=== PATIENT | male | born 1940 | race Caucasian/White ===

== ENCOUNTER → 2017-12-16 | Outpatient (CLI) | payer OTHER | LOC: FIMAGING 14:05 | PROVIDERS: ATTEND Orthopaedic Surgery | DX: M19.012 Primary osteoarthritis, left shoulder (principal); M25.812 Other specified joint disorders, left shoulder ==

== ENCOUNTER 2018-03-06 08:07 | Inpatient (IN) | payer OTHER ==
--- NOTE | 2018-03-03 15:35 | GHP ---
[f rep st] PREOP HISTORY AND PHYSICAL DATE OF ADMISSION: 03/06/2018 ADMISSION DIAGNOSIS: Osteoarthritis, left shoulder. PLANNED PROCEDURE: Left total shoulder arthroplasty. HISTORY: Wiliam is a 77-year-old male with slowly worsening osteoarthritis of the left shoulder. Mehran liu tried to manage this conservatively including physical therapy, activity modification, and cortis one injections. However, it has become functionally impaired on the left side and decision was made to proceed with a left total shoulder arthroplasty. PRIOR MEDICAL HISTORY: 1. Hypertension. 2. Coronary artery disease, status post stent placement. PRIOR SURGICAL HISTORY: He has had bilateral knee surgeries, right shoulder surgery in 2016 with a b iceps tenodesis and decompression. MEDICATIONS: Amlodipine, atorvastatin, baby aspirin, benazepril, Plavix, finasteride, metoprolol. ALLERGIES: No known drug allergies. SOCIAL HISTORY: He is . Lives here in town with his . He does not smoke. Reports occas ional alcohol use. REVIEW OF SYSTEMS: No shortness of breath or chest pain. Otherwise, review of systems is unremarkab le. PHYSICAL EXAMINATION: GENERAL: Healthy-appearing 77-year-old male. VITAL SIGNS: He is 5 feet 7 inche s tall, weighs 175 pounds. Blood pressure is 157/85, heart rate 74, respiratory rate is 14 on room a ir. GENERAL: Alert and oriented x3. HEENT: Normocephalic, atraumatic. Extraocular muscles intact . NECK: Supple. There is no lymphadenopathy. No JVD. CHEST: Clear to auscultation. CARDIOVASCU LAR: Regular rate and rhythm. ABDOMEN: Soft, nontender, nondistended. EXTREMITIES: Left shoulder shows some atrophy in the supraspinatus fossa, prominence over the AC joint, tenderness over the long head of the biceps. Active range of motion. He only has 60 degrees of forward flexion. Passively, I can get him to 130 degrees. He has 20 degrees of active external rotation. Passively, I can get h im to 60 degrees. Internal rotation, he has 60 degrees. Rotator cuff strength, supraspinatus is 4/5, infraspinatus 4/5 and subscapularis 4+ out of 5. IMAGING: MRI is reviewed from [facility], dated December 16, 2017. He has a partial tea r in the supraspinatus and a partial tear of the subscapularis, otherwise, rotator cuff is intact. T orn long head of the biceps and severe osteoarthritis of the glenohumeral joint. ASSESSMENT: Severe glenohumeral arthritis with partially torn rotator cuff. PLAN: Long discussion with Wiliam. He has failed conservative management. The shoulder is really concepcion te limiting for him. I recommend proceeding with a total shoulder arthroplasty. I think his cuff in tegrity is in good enough shape to proceed with a total shoulder although we did talk about the possi bility of needing to do a reverse if, in fact, the cuff is not in good shape. Risks and benefits inc luding postoperative stiffness, need for additional surgery, were all discussed. He understands thes e and wished to proceed. We will plan on surgery Tuesday at the hospital. /[id number]/MODL
[2018-03-06] MEDS ORDERED: ceFAZolin 2 GM/SWFI 2 GM/20 ML SYR IVP ONE (08:37)
[2018-03-06] MEDS ORDERED: LR 1,000 ML IV ONE (08:38)
[2018-03-06] MEDS ORDERED: ceFAZolin 2 GM/SWFI 20 ML SYR IVP ONE (08:42)
--- NOTE | 2018-03-06 09:03 | PDHPUP ---
History & Physical Update H&P update statement: This history and physical update is based on an assessment of the patient which was completed after admission or registration (within 24 hours), but prior to the surgery/procedure. H&P update: H&P reviewed & patient examined, no change in patient's condition since H&P completed
[2018-03-06] MEDS ORDERED: BACITRACIN 50,000 UNITS/10 ML SYR IRR ONE (09:20)
[2018-03-06] MEDS ORDERED: POLYMYXIN B SULFATE 500,000 UNIT/10 ML SYR IRR ONE (09:20)
[2018-03-06] MEDS ORDERED: BUPIVACAINE/EPI 0.5% 30 ML SDV ONE (09:20)
--- NOTE | 2018-03-06 09:20 | PDANEPAE ---
ANE History of Present Illness L total shoulder arthroplasty ANE Past Medical History - Cardiovascular History Hx Hypertension: Yes Hx Arrhythmias: No Hx Chest Pain: No Hx Coronary Artery / Peripheral Vascular Disease: Yes Hx CHF / Valvular Disease: No Hx Palpitations: No Cardiovascular History Comment: CAD. STENTS . [place]. MILD HEART MURMUR. CARDIOMYOPATHY. HYPERLIPIDEMIA - Pulmonary History Hx COPD: No Hx Asthma/Reactive Airway Disease: No Hx Recent Upper Respiratory Infection: No Hx Oxygen in Use at Home: No Hx Sleep Apnea: No Sleep Apnea Screening Result - Last Documented: Positive Pulmonary History Comment: SOPHIE TRIGGERS NO DX - Neurologic History Hx Cerebrovascular Accident: No Hx Seizures: No Hx Dementia: No - Endocrine History Hx Diabetes: No - Renal History Hx Renal Disorders: No - Liver History Hx Hepatic Disorders: No - Neurological & Psychiatric Hx Hx Neurological and Psychiatric Disorders: No - Cancer History Hx Cancer: No - Congenital Disorder History Hx Congenital Disorders: No - GI History Hx Gastrointestinal Disorders: No - Other Health History Other Health History: none - Chronic Pain History Chronic Pain: No - Surgical History Prior Surgeries: CARDIAC STENTS. LEFT KNEE SURGERY- SCOPE ACL AND MENISCUS REPAIR. RIGHT KNEE SCOPE. EYELID SURGERY ANE Review of Systems Review of systems is: negative Review of Systems: - Exercise capacity METS (RN): 4 METS ANE Patient History - Allergies Allergies/Adverse Reactions: No Known Allergies Allergy (Verified 02/10/18 14:35) - Home Medications Home medications: home medication list seen and reviewed Home Medications: Aspirin [Aspirin 81mg (*)] 81 mg PO DAILY 04/08/16 [Last Taken 1 Week Ago ~02/27] Atorvastatin Calcium [Lipitor 20 mg (*)] 20 mg PO DAILY 04/08/16 [Last Taken ] Benazepril HCl 40 mg PO DAILY 04/08/16 [Last Taken 03/05/18] Clopidogrel Bisulfate [Plavix (*)] 37.5 mg PO DAILY 04/08/16 [Last Taken 1 Week Ago ~02/27/18] Finasteride [Proscar 5 MG (*)] 5 mg PO DAILY 04/08/16 [Last Taken 03/06/18] Metoprolol Succinate Xr [Toprol Xl 100 mg (*)] 100 mg PO Q2D 04/08/16 [Last Taken 03/06/18] amLODIPine BESYLATE [Norvasc 10 mg (*)] 10 mg PO DAILY 04/08/16 [Last Taken ] Carboxymethylcellulose 1% [Refresh Celluvisc (*)] 1 drop EACHEYE DAILY PRN 02/10 [Last Taken 03/06/18] Multivitamins [Multivitamin (*)] 1 each PO DAILY 02/10/18 [Last Taken 1 Week Ago ~02/27/18] [place]-3 Fatty Acids [Fish Oil 1000 mg (*)] 1,000 mg PO DAILY 02/10/18 [Last Taken 1 Week Ago ~02/27/18] - NPO status NPO Status: no food or drink >8 hours NPO Since - Liquids (Date): 03/06/18 NPO Since - Liquids (Time): 04:30 NPO Since - Solids (Date): 03/05/18 NPO Since - Solids (Time): 20:00 - Anes Hx Anes Hx: no prior problems - Smoking Hx Smoking Status: Former smoker - Family Anes Hx Family Anes Hx: none Family Hx Anesthesia Complications: NONE ANE Labs/Vital Signs - Vital Signs Blood Pressure: 167/82 Heart Rate: 50 Respiratory Rate: 18 O2 Sat (%): 92 Height: 172.72 cm Weight: 81.647 kg ANE Physical Exam - Airway Neck exam: FROM Mallampati Score: Class 2 Mouth exam: normal dental/mouth exam - Pulmonary Pulmonary: no respiratory distress - Cardiovascular Cardiovascular: regular rate and rhythym - ASA Status ASA Status: III ANE Anesthesia Plan Anesthesia Plan: GA w LMA Regional Anesthesia: single shot NB, interscalene BP NB
[2018-03-06] MEDS ORDERED: ROPIVACAINE HCL 150 MG/30 ML INJ ONE (09:33)
[2018-03-06] MEDS ORDERED: DEXAMETHASONE 4 MG/ML VIAL ONE (09:34)
[2018-03-06] MEDS ORDERED: LIDOCAINE 2% 100 MG/5 ML SYR ONE (09:34)
[2018-03-06] MEDS ORDERED: ONDANSETRON 4 MG/2 ML VIAL ONE (09:34)
[2018-03-06] MEDS ORDERED: fentaNYL 100 MCG/2 ML INJ ONE ×2 (09:34→11:28)
[2018-03-06] MEDS ORDERED: PROPOFOL 200 MG/20 ML VIAL ONE (09:34)
[2018-03-06] MEDS ORDERED: epHEDrine SULFATE 10 MG/ML SYR ONE (10:11)
[2018-03-06] MEDS ORDERED: CALCIUM CHLORIDE 1 GM/10 ML INJ ONE (10:15)
[2018-03-06] MEDS ORDERED: THROMBIN (BOVINE) 5,000 UNIT VIAL TP ONE (10:15)
[2018-03-06] MEDS ORDERED: HYDROmorphONE/DILAUDID 2 MG/ML INJ IVP PRN (10:39)
[2018-03-06] MEDS ORDERED: HYDROCODONE/APAP 5/325 TAB PO PRN (10:39)
[2018-03-06] MEDS ORDERED: ACETAMINOPHEN 500 MG TAB PO PRN (10:39)
[2018-03-06] MEDS ORDERED: DEXAMETHASONE 4 MG/ML VIAL IVP PRN (10:39)
[2018-03-06] MEDS ORDERED: NALOXONE HCL 0.4 MG/ML INJ IVP PRN (10:39)
[2018-03-06] MEDS ORDERED: PROMETHAZINE HCL 25 MG/ML INJ IVP PRN (10:39)
[2018-03-06] MEDS ORDERED: ONDANSETRON 4 MG/2 ML VIAL IVP PRN ×2 (10:39→12:36)
[2018-03-06] MEDS ORDERED: MEPERIDINE 25 MG/ML SYR IVP PRN (10:39)
[2018-03-06] MEDS ORDERED: oxyCODONE IR 5 MG TAB PO PRN (10:39)
[2018-03-06] MEDS ORDERED: fentaNYL 100 MCG/2 ML INJ IVP PRN (10:39)
--- NOTE | 2018-03-06 10:39 | POSTANESTH ---
Post Anesthetic Evaluation Cardiovascular Status: Similar to Pre-Op Cond Respiratory Status: Normal, Stable, Similar to Pre-op Cond. Level of Consciousness/Mental Status: Can Participate in Eval, Mildly Sleepy, Arousable Pain Control: Adequate, Prn Tx Ordered Nausea/Vomiting Control: Adequate, Prn Tx Ordered Complications Possibly Related to Anesthesia: None Noted
[2018-03-06] MEDS ORDERED: ACETAMINOPHEN 325 MG TAB PO PRN (12:36)
[2018-03-06] MEDS ORDERED: KETOROLAC 15 MG/1 ML SDV IVP ONE (12:36)
--- NOTE | 2018-03-06 12:36 | POSTOPPROG ---
Post Op Note Date of Operation: 03/06/18 Surgeon: Chetan Brooks Retort Or Condenser Press Operator: jaron Rich Anesthesia: LMA Pre-op Diagnosis: OA LT shoulder Post-op Diagnosis: same Procedure: LT TSA Findings: severe OA, RC intact Inf/Abcess present in the surg proc area at time of surgery?: No EBL: 50-100 Complications: none
[2018-03-06] MEDS ORDERED: CARBOXYMETHYLCELLULOSE 1% 0.4 ML DROPERETTE EACHEYE PRN (12:40)
[2018-03-06] MEDS ORDERED: LR 1,000 ML IV SCH (13:00)
--- NOTE | 2018-03-06 13:01 | GOP ---
[f rep st] OPERATIVE REPORT DATE OF OPERATION: 03/06/2018 SURGEON: Chetan Brooks MD MANAGER FURNITURE: True Rich, BATCHMAKER, [facility] ANESTHESIA: Harsh Trevino MD, interscalene block with general. PREOPERATIVE DIAGNOSIS: Left shoulder osteoarthritis. POSTOPERATIVE DIAGNOSIS: Left shoulder osteoarthritis. PROCEDURE PERFORMED: Left total shoulder arthroplasty. FINDINGS: ESTIMATED BLOOD LOSS: 150 mL. INDICATIONS: The patient is a 77-year-old male with slowly worsening left shoulder pain, failed cons ervative management. Decision was made to proceed with a left total shoulder arthroplasty. Preopera tive MRI had shown that his rotator cuff was intact. DESCRIPTION OF PROCEDURE: After appropriate informed consent was obtained, patient was taken to the operating room and placed supine on the operating table. Time-out was performed. Patient was identi fied. Correct site was identified, matched to the radiographs available in the room. He received 2 g of Ancef preoperatively. Following an interscalene block by Dr. Trevino, general endotracheal tub e anesthesia was administered. Patient was then positioned in a beach chair position with all bony p rominences well padded. Left upper extremity was prepped and draped in the usual sterile fashion. I made a standard deltopectoral incision centered over the coracoid. Soft tissues were carefully diss ected. Bleeding was controlled with electrocautery. I incised the deltopectoral fascia, retracted a nd freed up the cephalic vein towards the medial side. I was then able to place retractor under the deltoid and the coracoacromial ligament. Biceps tendon was partially torn. I was able to complete t he tear and then tenodese it. I then took down the subscapularis, leaving a cuff of tissue on the le sser trochanter for later repair. I had to use two #2 FiberWires for tagging. I then performed my i nferior capsular release around the humeral head, being careful to protect the axillary nerve through out the entire procedure. Using an oscillating saw, I resected the humeral head. This measured a si ze 46. I then placed a glenoid retractor both anteriorly and posteriorly, removed remaining labrum a nd bone spurs inferiorly off the glenoid. I was then able to use our guide, size medium, and drill o ur pilot highway patrol hole and then use our 3-in-1 drill guide and drill our glenoid holes. On the back table, ce ment was mixed. We then, under finger pressure, pressurized the cement in all 3 holes and placed our glenoid component in place, tapped it into place. I then turned my attention to the humeral head. I externally rotated the humeral head and brought it out of the wound. Using the 5, followed by the 6 femoral broaches, we entered the canal and then broached up to a size 9 with good rotational stabil ity. We trialed the 46 head. I was happy with the motion and the stability. We placed our final 9 stem, and our 46 head was impacted into place. I reduced the shoulder one last time, irrigated the w ound, closed the subscapularis back with #2 FiberWire, and then closed the deltopectoral interval loo sely with #0 Vicryl. Superficial layer was closed with 2-0 Vicryl. Skin was closed with a 3-0 Quill stitch in a subcuticular fashion. Steri-Strips were applied. I instilled 20 mL of 0.5% Marcaine wi th epinephrine around the incision. A sterile dressing and a sling were applied. Patient was awaken ed from anesthesia, taken to the recovery room in satisfactory condition. There were no immediate in traoperative complications. Parish Rich's assistance was required throughout the entirety of the case. IMPLANTS USED: An Arthrex universal glenoid, size medium; a 9 mm humeral stem; and a Univers 2 humer al head, size 48 x 19. COMPLICATIONS: None. DRAINS: None. /[id number]/MODL
--- NOTE | 2018-03-06 13:13 | PDMN ---
Medical Necessity Medical necessity: [facility] IP only surgery, cpt 40513 L TSA
[2018-03-06] MEDS: ceFAZolin 2 GM/SWFI 2 GM/20 ML SYR IVP SCH ×2 (16:06→21:18)
[2018-03-06] MEDS: HYDROCODONE/APAP 5/325 TAB PO PRN ×2 (18:37→21:29)
[2018-03-06] MEDS: DOCUSATE SODIUM 100 MG CAP PO SCH (21:28)
[2018-03-07] MEDS: HYDROCODONE/APAP 5/325 TAB PO PRN ×2 (01:20→08:57)
[2018-03-07] MEDS: ASPIRIN 81 MG CHEWABLE TAB PO SCH (08:25)
[2018-03-07] MEDS: DOCUSATE SODIUM 100 MG CAP PO SCH ×2 (08:25→20:42)
[2018-03-07] MEDS: OMEGA-3 FATTY ACIDS 1,000 MG CAP PO SCH (08:25)
[2018-03-07] MEDS: CLOPIDOGREL BISULFATE 75 MG TAB PO SCH (08:26)
[2018-03-07] MEDS: FINASTERIDE 5 MG TAB PO SCH (08:28)
[2018-03-07] MEDS: ATORVASTATIN CALCIUM 20 MG TAB PO SCH (08:30)
[2018-03-07] MEDS: BENAZEPRIL HCL 20 MG TAB PO SCH (08:31)
--- NOTE | 2018-03-07 13:08 | SOAPPROG ---
SOAP Progress Note Assessment/Plan: Assessment: POD3! LT TSA Plan: 03/07/18 13:06 suspect low O2 sats due to interscalene block No ER > 35 x 6 weeks anticipate DC Tuesday Subjective: block starting to wear off Objective: O2 sats mid 80's off O2 dressing c/d/i moving fingers 2+ radial pulse Vital Signs Temp Pulse Resp BP Pulse Ox 37.1 C 61 18 102/63 90 L 03/07/18 12:00 03/07/18 12:00 03/07/18 12:00 03/07/18 12:00 03/07/18 12:00 03/06/18 03/07/18 03/08/18 05:59 05:59 05:59 Intake Total 1750 650 Output Total 600 400 Balance 1150 250 ICD10 Worksheet Patient Problems: Problems Problem Status Onset Osteoarthritis of left shoulder region Acute - ICD10 Problem Qualifiers (1) Osteoarthritis of left shoulder region Qualifiers: Osteoarthritis type: primary Qualified Code(s): M19.012 - Primary osteoarthritis, left shoulder
[2018-03-07] MEDS: oxyCODONE IR 5 MG TAB PO PRN ×2 (13:48→16:48)
--- NOTE | 2018-03-07 16:20 | ASMTCMCOM ---
CM Note CM Note Notes: Pt had shoulder surgery and will follow up with outpatient PT. PT rec outpatient, OT rec home/home care. Pt has support of spouse at home. Anticipate d/c tomorrow. CM to follow. Date Signed: 03/07/2018 04:20 PM Electronically Signed By:NAN Swartz
[2018-03-07] MEDS: OXYCODONE/APAP 5/325 TAB PO PRN (20:42)
--- NOTE | 2018-03-07 21:14 | CPEKG ---
Heart Rate: 69 RR Interval: 870 P-R Interval: 196 QRSD Interval: 104 QT Interval: 392 QTC Interval: 420 P [place]: 17 QRS [place]: -6 T Wave [place]: 7 EKG Severity - NORMAL ECG - EKG Impression: SINUS RHYTHM Electronically Signed By: Fazal Stein 08-Mar-2018 08:52:42
[2018-03-07 21:23] LABS: CREATINE KINASE 526 IU/L (0-224)
[2018-03-08] MEDS: OMEGA-3 FATTY ACIDS 1,000 MG CAP PO SCH (08:57)
[2018-03-08] MEDS: ASPIRIN 81 MG CHEWABLE TAB PO SCH (08:57)
[2018-03-08] MEDS: ATORVASTATIN CALCIUM 20 MG TAB PO SCH (08:57)
[2018-03-08] MEDS: CLOPIDOGREL BISULFATE 75 MG TAB PO SCH (08:57)
[2018-03-08] MEDS: DOCUSATE SODIUM 100 MG CAP PO SCH (08:57)
[2018-03-08] MEDS: BENAZEPRIL HCL 20 MG TAB PO SCH (08:58)
[2018-03-08] MEDS: OXYCODONE/APAP 5/325 TAB PO PRN (08:58)
[2018-03-08] MEDS: FINASTERIDE 5 MG TAB PO SCH (08:58)
[2018-03-08] MEDS ORDERED: METOPROLOL SUCCINATE XR 100 MG TAB PO SCH (09:00)
--- NOTE | 2018-03-08 09:25 | SOAPPROG ---
SOAP Progress Note Assessment/Plan: Assessment: POD3! LT TSA Plan: 03/07/18 13:06 suspect low O2 sats due to interscalene block No ER > 35 x 6 weeks anticipate DC Tuesday03/08/18 09:24 POD#2 LT TSA unclear etiology for chest pain/hypoxia possible side effect of interscalene block will ask hospitalist to eval prior to discharge Today Subjective: hypoxia with some chest discomfort o/n labs/ekg done Objective: feeling good now no chest pain on 1L O2 EKG nl labs ok dressing c/d/i moving fingers well Vital Signs Temp Pulse Resp BP Pulse Ox 37.6 C 71 16 130/65 H 86 L 03/08/18 07:34 03/08/18 08:56 03/08/18 07:34 03/08/18 08:57 03/08/18 09:07 03/07/18 03/08/18 03/09/18 05:59 05:59 05:59 Intake Total 1750 1950 Output Total 600 1425 225 Balance 1150 525 -225 ICD10 Worksheet Patient Problems: Problems Problem Status Onset Osteoarthritis of left shoulder region Acute - ICD10 Problem Qualifiers (1) Osteoarthritis of left shoulder region Qualifiers: Osteoarthritis type: primary Qualified Code(s): M19.012 - Primary osteoarthritis, left shoulder
--- NOTE | 2018-03-08 09:31 | PDIAF ---
- Diagnosis Code Status: Full Code - Medication Management Discharge Medications: Medications to Continue on Transfer Aspirin [Aspirin 81mg (*)] 81 mg PO DAILY 04/08/16 [Last Taken 1 Week Ago ~02/27] Atorvastatin Calcium [Lipitor 20 mg (*)] 20 mg PO DAILY 04/08/16 [Last Taken ] Benazepril HCl 40 mg PO DAILY 04/08/16 [Last Taken 03/05/18] Clopidogrel Bisulfate [Plavix (*)] 37.5 mg PO DAILY 04/08/16 [Last Taken 1 Week Ago ~02/27/18] Finasteride [Proscar 5 MG (*)] 5 mg PO DAILY 04/08/16 [Last Taken 03/06/18] Metoprolol Succinate Xr [Toprol Xl 100 mg (*)] 100 mg PO Q2D 04/08/16 [Last Taken 03/06/18] amLODIPine BESYLATE [Norvasc 10 mg (*)] 10 mg PO DAILY 04/08/16 [Last Taken ] Carboxymethylcellulose 1% [Refresh Celluvisc (*)] 1 drop EACHEYE DAILY PRN 02/10 [Last Taken 03/06/18] Multivitamins [Multivitamin (*)] 1 each PO DAILY 02/10/18 [Last Taken 1 Week Ago ~02/27/18] [place]-3 Fatty Acids [Fish Oil 1000 mg (*)] 1,000 mg PO DAILY 02/10/18 [Last Taken 1 Week Ago ~02/27/18] oxyCODONE/APAP 5/325 [Percocet 5/325 (*)] 1 - 2 tab PO Q3HRS PRN #40 tab [Last Taken Unknown] Discharge Medications: Refer to the Discharge Home Medication list for PRN reason. - Orders Services needed: Home Intermediate Care Face to Face: I certify that this patient was under my care and that I had the required [id number] encounter meeting the encounter requirements on the discharge day. My findings support the fact that the patient is homebound as defined in Home Care Face to Face Continued: CMS Chapter 7 Medicare Benefits Manual 30.1.1 , The condition of the patient is such that there exists a normal inability to leave home and consequently, leaving home would require a considerable and taxing effort. Diet Recommendation: no restrictions on diet Diet Texture: Regular Texture Diet Additional Instructions: sling for comfort No ER >35 x 6 weeks remove dressing Tuesday - shower F/U Todd 2 weeks - Follow Up Care Current Providers and Referrals: Melissa Mejia MD [Primary Care Provider] - Chetan Brooks MD [Medical Doctor] -
--- NOTE | 2018-03-08 09:37 | PDHOMEO2F ---
Home Oxygen Face to Face Home Orders: I certify that a physician or a nurse practitioner or physician's boilermaker's assistant has had a [id number] encounter with this patient on the date of this order due to the diagnosis listed, which relates to the primary reason the patient requires home oxygen. Alternative treatments have been tried, or considered, and deemed ineffective. It is anticipated that supplemental oxygen will result in improvement with treatment. Home oxygen qualifying diagnosis: post op hypoxia SpO2 on room air (%): 86% Frequency of home oxygen needed: continuous Home oxygen liters per minute: 1L Home oxygen delivery device: nasal cannula Concentrator: No E-tanks for mobility and back up: No I certify that, based on these findings, the home oxygen is medically necessary for this patient for the following length of time. Length of time home oxygen needed: 1 month
[2018-03-08 11:03] VITALS: BP 106/58
[2018-03-08 13:05] LABS: PLATELET COUNT 242 10^3/uL (150-400)
--- NOTE | 2018-03-08 13:11 | GCON ---
[f rep st] CONSULTATION REFERRING PHYSICIAN: Chetan Brooks MD REASON FOR CONSULTATION: Evaluation of chest pain and hypoxemia. HISTORY OF PRESENT ILLNESS: Mr. Swift is a 77-year-old male with a past medical history of coronary artery disease with stent placement, cardiomyopathy , hyperlipidemia, and hypertension who is status post a left shoulder arthroplasty for osteoarthritis. He had surgery on 03/06 and did well with the surgery. Last night, the patient had an episode of possible chest pain. He describes it to be in the left shoulder area. He was unclear if it was his heart or pain secondary to his shoulder. He had an interscalene block during surgery and it is possible that it could have worn off. The pain did not radiate. He did not have any nausea with the pain. It went away on its own. A troponin was checked. This was negative. I reviewed his EKG which showed a sinus rhythm. Prior to getting surgery, he saw his rehabilitation medicine physician Dr. Garcia. He had an EKG that was noted to be stable. He has no shortness of breath during my interview. He has no chest pain. He has no history of gastroesophageal reflux disease. He is overall feeling very well and is anxious to be discharged. PAST MEDICAL HISTORY: 1. Coronary artery disease with stent placement. 2. Questionable history of a myocardial infarction. The patient is not sure this is correct. 3. Heart murmur. 4. Cardiomyopathy. 5. Hyperlipidemia. 6. Hypertension. 7. Benign prostatic hypertrophy. PAST SURGICAL HISTORY: 1. ACL repair 25 years ago. 2. Left shoulder arthroplasty on this admission. SOCIAL HISTORY: He has been for 40 years. Him and his have 4 children between the 2 of them. He has a history of smoking in college and in high school, and at that time he smoked up to a pack a day. He stop smoking in 1966. He drinks 1 to 2 glasses of wine nightly. 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 FAMILY HISTORY: His mom of complications of a heart attack at age 78. His father had Hodgkin's lymphoma and at a very young age. ALLERGIES: No known allergies. HOME MEDICATIONS: Amlodipine 10 mg daily, Proscar 5 mg daily, benazepril 40 mg daily, fish oil 1000 mg daily, multivitamin 1 tablet daily, Plavix 37.5 mg daily , Lipitor 20 mg daily, aspirin 81 mg daily, and Percocet 1 to 2 tablets q.3 hours p.r.n. REVIEW OF SYSTEM: A 10-point review of systems was performed and was negative other than pertinent positives in HPI and past medical history. PHYSICAL EXAMINATION: GENERAL: Mr. Swift is a 77-year-old male who appears to be overall in good health. VITAL SIGNS: Blood pressure is 106/58, heart rate is 57, respiratory rate is 14, O2 saturation on 1 L, 92%. Temperature is 36.6 Celsius. EYES: Pupils are equal and reactive. EOMs are intact. No conjunctival injection noted. He is wearing glasses. ENT: Normal ears. Hearing intact. Oral airway is moist. NECK: Trachea is midline. CARDIOVASCULAR: He is in a regular rate and rhythm. A soft systolic murmur is noted over the left sternal border. No rubs or gallops noted. CHEST/LUNGS: Normal respiratory effort. Clear without wheezing, rales, rhonchi. Slightly diminished at the bases. ABDOMEN: Soft, nontender, and round. SKIN: No rashes. His fingers are warm on his left hand. He is wearing a sling, and has an ice pack applied to this area. MUSCULOSKELETAL: Stable. PSYCHIATRIC: He is alert and oriented. Normal mood, affect. Normal judgment, insight and normal memory. LABORATORY DATA: 1. A troponin was checked which was less than 0.012, a CK MB of 3.93 and a CPK of 526. 2. A 12-lead EKG shows sinus rhythm. ASSESSMENT/PLAN: 1. Episode of possible chest pain. The patient describes that it was difficult to ascertain if it was left shoulder or true chest pain. Will get a 2nd troponin to be assured that this is stable. In addition, will get a repeat EKG. Will have him follow up with Dr. Garcia in the outpatient setting. The patient is very compliant and has close monitoring. 2. Hypoxemia, most likely secondary to atelectasis. Will get a chest x-ray prior to discharge to further evaluate. 3. Fevers. He had several fevers during the night last night. Will check a CBC. He has had no further fevers today. On discharge, would recommend if this should reoccur to follow up immediately with his primary care provider for further evaluation. Thank you for this consultation. We will follow up with his troponin and his chest x-ray. /[id number]/MODL MTDD
--- NOTE | 2018-03-08 15:56 | ASMTCMCOM ---
CM Note CM Note Notes: Pt medically stable for d/c, no CM d/c needs identified. Date Signed: 03/08/2018 03:55 PM Electronically Signed By:NAN Swartz
== END 2018-03-08 15:26 | disposition home or self-care (01) | DRG 483 ==
LOC: F3N 08:07
PROVIDERS: ADMIT Orthopaedic Surgery; ATTEND Orthopaedic Surgery
PROC: 0RRK00Z Replacement of Left Shoulder Joint with Reverse Ball and Socket Synthetic Substitute, Open Approach (ICD-10-PCS; principal; 2018-03-06 10:15)
DX: M19.012 Primary osteoarthritis, left shoulder (principal); I25.10 Atherosclerotic heart disease of native coronary artery without angina pectoris; E78.5 Hyperlipidemia, unspecified; I10 Essential (primary) hypertension; E03.9 Hypothyroidism, unspecified; N40.0 Benign prostatic hyperplasia without lower urinary tract symptoms; I25.2 Old myocardial infarction; G47.33 Obstructive sleep apnea (adult) (pediatric); Z95.5 Presence of coronary angioplasty implant and graft
CPT/HCPCS: 97116-GP; 97161-GP; 97165-GO; 97530-GP; 97535-GO; C1713; G8978-GP-CI; G8979-GP-CI; G8987-GO-CJ; G8988-GO-CI; G8989-GO-CI; J0690; J1100; J1885; J2001; J2405; J2704; J2795; J3010